=== PATIENT | male | born 1975 | race Two or more races ===

== ENCOUNTER 2023-09-27 19:06 | Inpatient (IN) | payer MEDICAID, OTHER ==
[~2023-09-27] VITALS: Ht 177.8 cm; Wt 141.6 kg
[2023-09-27 19:44] LABS: Basophils # (auto) 0.1 10 ^3/uL (0-0.2); Basophils % (auto) 0.7 % (0.0-2.0); Eosinophils # (auto) 0.2 10 ^3/uL (0-0.8); Eosinophils % (auto) 1.5 % (0.0-7.0); Hematocrit 46.2 % (41.0-53.0); Hemoglobin 15.1 g/dL (13.5-17.5); Lymphocytes % (auto) 19.2 % (10.0-50.0); Mean Corpuscular Hemoglobin 28.4 pg (28.0-32.0); Mean Corpuscular Hgb Conc. 32.7 g/dL (32.0-36.0); Mean Corpuscular Volume 86.6 fL (80.0-100.0); Monocytes # (auto) 0.9 10 ^3/uL (0-1.3); Monocytes % (auto) 8.1 % (0.0-12.0); Neutrophils # (auto) 7.6 10 ^3/uL (1.6-8.6); Neutrophils % (auto) 70.5 % (37.0-80.0); Platelet Count (auto) 349 10^3/uL (140-450); Red Blood Cells 5.33 10^6/uL (4.5-5.90); Red Cell Distribution Width 14.2 % (11.8-14.3); White Blood Cell 10.7 10^3/uL (4.4-10.8)
[2023-09-27 19:56] LABS: Chloride 94 mmol/L (98-107); Potassium 4.7 mmol/L (3.5-5.1); Sodium 124 mmol/L (136-145)
[2023-09-27 19:57] LABS: Anion Gap 5 (5-15); Calcium 9.3 mg/dL (8.7-10.4); Carbon Dioxide 25 mmol/L (20-30)
[2023-09-27 20:02] LABS: Blood Urea Nitrogen 15 mg/dL (9-23)
[2023-09-27 20:14] LABS: Glucose 877 mg/dL (74-106)
[2023-09-27] MEDS ORDERED: DEXTROSE (50%) 50ML SYRG IV PRN (21:45)
[2023-09-27] MEDS ORDERED: ONDANSETRON HCL 4 MG/2 ML VIAL IV PRN (21:45)
[2023-09-27] MEDS: InsuLIN REG 1unit/0.01ml Soln (100units/ml) IV ONE (22:10)
[2023-09-27] MEDS: cloNIDine HCL 0.1 MG TAB PO ONE (22:10)
[2023-09-27] MEDS: SODIUM CHLORIDE 0.9% 1,000 ML IV ONE (22:13)
[2023-09-27 23:03] VITALS: PULSE 97; RESP 20; O2SAT 92
[2023-09-27] MEDS: cloNIDine HCL 0.1 MG TAB PO PRN (23:27)
[2023-09-28] MEDS: InsuLIN REG 1unit/0.01ml Soln (100units/ml) SC SCH (01:02)
[2023-09-28] MEDS: LISINOPRIL 5 MG TAB PO SCH (01:04)
[2023-09-28] MEDS: ACCU-CHEK COMFORT CURVE STRIP VI SCH (01:10)
[2023-09-28] MEDS: SODIUM CHLORIDE 0.9% 1,000 ML IV ONE ×2 (02:32→07:37)
[2023-09-28 03:49] LABS: Basophils # (auto) 0.1 10 ^3/uL (0-0.2); Basophils % (auto) 0.5 % (0.0-2.0); Eosinophils # (auto) 0.2 10 ^3/uL (0-0.8); Eosinophils % (auto) 1.9 % (0.0-7.0); Hematocrit 44.2 % (41.0-53.0); Hemoglobin 15.1 g/dL (13.5-17.5); Lymphocytes # (auto) 2.9 10 ^3/uL (0.4-5.4); Lymphocytes % (auto) 24.4 % (10.0-50.0); Mean Corpuscular Hemoglobin 28.7 pg (28.0-32.0); Mean Corpuscular Hgb Conc. 34.1 g/dL (32.0-36.0); Mean Corpuscular Volume 84.2 fL (80.0-100.0); Monocytes # (auto) 0.8 10 ^3/uL (0-1.3); Neutrophils # (auto) 7.9 10 ^3/uL (1.6-8.6); Neutrophils % (auto) 66.2 % (37.0-80.0); Platelet Count (auto) 345 10^3/uL (140-450); Red Blood Cells 5.24 10^6/uL (4.5-5.90); Red Cell Distribution Width 14.1 % (11.8-14.3)
[2023-09-28 04:07] LABS: Alanine Aminotransferase 24 U/L (7-40); Albumin 3.8 g/dL (3.2-4.8); Alkaline Phosphatase 177 U/L (46-116); Anion Gap 2 (5-15); Aspartate Aminotransferase 11 U/L (13-40); BUN/Creatinine Ratio 10.8 (10.0-20.0); Bilirubin, Total 0.5 mg/dL (0.2-1.0); Blood Urea Nitrogen 12 mg/dL (9-23); Calcium 9.2 mg/dL (8.7-10.4); Carbon Dioxide 28 mmol/L (20-30); Chloride 102 mmol/L (98-107); Potassium 3.6 mmol/L (3.5-5.1); Total Protein 6.7 g/dL (5.7-8.2)
[2023-09-28 04:17] LABS: Sodium 132 mmol/L (136-145)
[2023-09-28 04:18] LABS: Glucose 401 mg/dL (74-106)
[2023-09-28 08:08] VITALS: PULSE 89; RESP 18; O2SAT 96
[2023-09-28 09:23] LABS: Base Excess 0.6 mmol/L (-2.0-2.0)
[2023-09-28] MEDS ORDERED: LISINOPRIL 5 MG TAB PO SCH (10:00)
[2023-09-28] MEDS: INSULIN LANTUS (GLARGINE) 1 /0.01ml (100units/ml) SC SCH ×2 (10:50→11:00)
[2023-09-28 15:20] LABS: Magnesium 2.2 mg/dL (1.6-2.6)
[2023-09-28 15:45] VITALS: BP 143/83; PULSE 85; TEMP 97.6; O2SAT 96
[2023-09-28 17:07] VITALS: BP 143/83; PULSE 85; RESP 17; TEMP 97.6; O2SAT 96
[2023-09-28 18:46] LABS: Urine Bacteria None Seen /hpf (None Seen)
[2023-09-28 19:05] LABS: Urine Blood TRACE /uL (Negative); Urine Clarity Clear (Clear); Urine Color Light-Yellow (Yellow); Urine Protein, UAD Negative (Negative); Urine Specific Gravity 1.024 (1.001-1.035); Urine Urobilinogen Normal (Negative); Urine WBC <1 /hpf (0 - 3)
[2023-09-28 19:14] LABS: Amphetamine Screen, Urine Neg (NEGATIVE); Barbiturate Scree,Urine Neg (NEGATIVE); Benzodiazephine Screen, Urine Neg (NEGATIVE); Cannabinoid Screen, Urine Neg (NEGATIVE); Cocaine Screen, Urine Neg (NEGATIVE); Opiate Scree,Urine Neg (NEGATIVE); Phencyclidine Screen, Urine Neg (NEGATIVE)
[2023-09-28 20:00] VITALS: PULSE 101; RESP 18; O2SAT 95
[2023-09-28 21:00] VITALS: BP 113/82; PULSE 106; RESP 16; TEMP 98.4; O2SAT 94
[2023-09-28] MEDS: ACETAMINOPHEN 325 MG TAB PO PRN (23:06)
[2023-09-29] VITALS (8 sets, daily range): BP systolic 143–163; BP diastolic 85–104; PULSE 78–101; RESP 20–22; TEMP 97.9–98.4; O2SAT 93–100
[2023-09-29 07:07] LABS: Basophils # (auto) 0.1 10 ^3/uL (0-0.2); Basophils % (auto) 0.6 % (0.0-2.0); Eosinophils # (auto) 0.3 10 ^3/uL (0-0.8); Eosinophils % (auto) 2.5 % (0.0-7.0); Hematocrit 43.9 % (41.0-53.0); Hemoglobin 15.3 g/dL (13.5-17.5); Lymphocytes # (auto) 2.6 10 ^3/uL (0.4-5.4); Lymphocytes % (auto) 21.1 % (10.0-50.0); Mean Corpuscular Hemoglobin 29.3 pg (28.0-32.0); Mean Corpuscular Hgb Conc. 34.7 g/dL (32.0-36.0); Mean Corpuscular Volume 84.2 fL (80.0-100.0); Monocytes % (auto) 7.9 % (0.0-12.0); Neutrophils # (auto) 8.5 10 ^3/uL (1.6-8.6); Neutrophils % (auto) 67.9 % (37.0-80.0); Platelet Count (auto) 331 10^3/uL (140-450); Red Blood Cells 5.22 10^6/uL (4.5-5.90); Red Cell Distribution Width 14.2 % (11.8-14.3); White Blood Cell 12.5 10^3/uL (4.4-10.8)
[2023-09-29 07:26] LABS: Alanine Aminotransferase 26 U/L (7-40); Albumin 3.7 g/dL (3.2-4.8); Alkaline Phosphatase 133 U/L (46-116); Anion Gap 7 (5-15); Aspartate Aminotransferase 17 U/L (13-40); BUN/Creatinine Ratio 10.8 (10.0-20.0); Blood Urea Nitrogen 10 mg/dL (9-23); Carbon Dioxide 25 mmol/L (20-30); Chloride 103 mmol/L (98-107); Potassium 3.2 mmol/L (3.5-5.1); Sodium 135 mmol/L (136-145)
[2023-09-29 07:27] LABS: Bilirubin, Total 0.6 mg/dL (0.2-1.0); Total Protein 6.8 g/dL (5.7-8.2)
[2023-09-29 07:37] LABS: Glucose 265 mg/dL (74-106)
[2023-09-29] MEDS: amLODIPine BESYLATE 5 MG TAB PO SCH (09:22)
[2023-09-29] MEDS: POTASSIUM CHL 20 Meq TABLET PO ONE (09:22)
[2023-09-29] MEDS ORDERED: LISI2.5T47 PO (09:28)
[2023-09-29] MEDS ORDERED: BENA10TA90 PO (09:28)
[2023-09-29] MEDS: INSULIN LANTUS (GLARGINE) 1 /0.01ml (100units/ml) SC SCH (13:15)
[2023-09-29] MEDS: hydrALAZINE HCL 20 MG/ML VL IV PRN (17:34)
[2023-09-29] MEDS: INSULIN LANTUS (GLARGINE) 1 /0.01ml (100units/ml) SC ONE (18:12)
[2023-09-29] MEDS: LISINOPRIL 20 MG TAB PO SCH (21:33)
[2023-09-29] MEDS: CEPHALEXIN 250 MG CAP PO SCH (21:33)
[2023-09-30] VITALS (7 sets, daily range): BP systolic 114–134; BP diastolic 71–87; PULSE 91–105; RESP 17–22; TEMP 98–98.3; O2SAT 91–99
[2023-09-30 06:10] LABS: Basophils # (auto) 0.1 10 ^3/uL (0-0.2); Basophils % (auto) 0.6 % (0.0-2.0); Eosinophils # (auto) 0.3 10 ^3/uL (0-0.8); Eosinophils % (auto) 2.5 % (0.0-7.0); Hematocrit 47.2 % (41.0-53.0); Hemoglobin 16.1 g/dL (13.5-17.5); Lymphocytes # (auto) 2.6 10 ^3/uL (0.4-5.4); Lymphocytes % (auto) 25.7 % (10.0-50.0); Mean Corpuscular Hemoglobin 28.8 pg (28.0-32.0); Mean Corpuscular Hgb Conc. 34.1 g/dL (32.0-36.0); Mean Corpuscular Volume 84.5 fL (80.0-100.0); Monocytes # (auto) 0.9 10 ^3/uL (0-1.3); Monocytes % (auto) 8.5 % (0.0-12.0); Neutrophils # (auto) 6.4 10 ^3/uL (1.6-8.6); Neutrophils % (auto) 62.7 % (37.0-80.0); Platelet Count (auto) 364 10^3/uL (140-450); Red Blood Cells 5.59 10^6/uL (4.5-5.90); Red Cell Distribution Width 14.7 % (11.8-14.3); White Blood Cell 10.2 10^3/uL (4.4-10.8)
[2023-09-30 06:39] LABS: Alanine Aminotransferase 29 U/L (7-40); Albumin 3.9 g/dL (3.2-4.8); Alkaline Phosphatase 126 U/L (46-116); Anion Gap 8 (5-15); Aspartate Aminotransferase 20 U/L (13-40); BUN/Creatinine Ratio 9.8 (10.0-20.0); Blood Urea Nitrogen 9 mg/dL (9-23); Calcium 9.3 mg/dL (8.7-10.4); Carbon Dioxide 25 mmol/L (20-30); Chloride 105 mmol/L (98-107); Glucose 232 mg/dL (74-106); Potassium 3.4 mmol/L (3.5-5.1); Sodium 138 mmol/L (136-145)
[2023-09-30 06:40] LABS: Bilirubin, Total 0.5 mg/dL (0.2-1.0); Total Protein 7.1 g/dL (5.7-8.2)
[2023-09-30] MEDS: ENOXAPARIN SOD 40 MG/0.4 ML SYRINGE SC SCH (10:10)
[2023-09-30] MEDS: SULFAMETHOX W/TRIMETH(800/160MG) DS TAB PO SCH (10:10)
[2023-09-30] MEDS: hydrALAZINE HCL 10 MG TAB PO SCH (12:27)
[2023-09-30 13:53] LABS: Base Excess -1.2 mmol/L (-2.0-2.0)
[2023-09-30] MEDS ORDERED: HYDR-2792 PO (15:42)
[2023-09-30] MEDS ORDERED: LISI20TA56 PO (15:42)
[2023-09-30] MEDS ORDERED: METF-370 PO (15:42)
[2023-09-30] MEDS ORDERED: AML5T PO (15:42)
[2023-09-30] MEDS ORDERED: BACDST PO (15:42)
[2023-09-30] MEDS ORDERED: INSU1INJ26 SC (16:31)
== END 2023-09-30 20:25 | disposition home or self-care (01) | DRG 420 ==
LOC: ER 19:06 → OVERFLOW 21:46 → EAST 09-28 16:27
PROVIDERS: ADMIT Internal Medicine Pulmonary Disease; ATTEND Internal Medicine Pulmonary Disease
DX: E11.00 Type 2 diabetes mellitus with hyperosmolarity without nonketotic hyperglycemic-hyperosmolar coma (NKHHC) (principal); N17.0 Acute kidney failure with tubular necrosis; I16.0 Hypertensive urgency; L30.9 Dermatitis, unspecified; E87.1 Hypo-osmolality and hyponatremia; E87.6 Hypokalemia; L73.8 Other specified follicular disorders; F17.210 Nicotine dependence, cigarettes, uncomplicated; Z91.199 Patient's noncompliance with other medical treatment and regimen due to unspecified reason; Z83.3 Family history of diabetes mellitus; I10 Essential (primary) hypertension
CPT/HCPCS: 36415; 36600; 80048; 80053; 80061; 80307; 81001; 82010; 82043; 82805; 82962; 83036; 83605; 83735; 83880; 84132; 84484; 85025; 87040; 87077; 87081; 87186; 87205; 96361; 96372; 96374; 97110; 97116; 97162; 97530; 99291; G0378; J1815

== ENCOUNTER 2023-12-02 17:45 | Inpatient (IN) | payer MEDICAID ==
[~2023-12-02] VITALS: Ht 175.3 cm; Wt 121.2 kg
[~2023-12-02 17:45] MED LIST: AML5T PO; BACDST PO; HYDR-2792 PO; INSU1INJ26 SC; LISI20TA56 PO; METF-370 PO
[2023-12-02 18:25] LABS: Basophils # (auto) 0.1 10 ^3/uL (0-0.2); Basophils % (auto) 0.9 % (0.0-2.0); Eosinophils # (auto) 0.2 10 ^3/uL (0-0.8); Eosinophils % (auto) 2.2 % (0.0-7.0); Hematocrit 46.5 % (41.0-53.0); Hemoglobin 15.9 g/dL (13.5-17.5); Lymphocytes # (auto) 2.1 10 ^3/uL (0.4-5.4); Lymphocytes % (auto) 21.3 % (10.0-50.0); Mean Corpuscular Hemoglobin 29.5 pg (28.0-32.0); Mean Corpuscular Hgb Conc. 34.2 g/dL (32.0-36.0); Mean Corpuscular Volume 86.3 fL (80.0-100.0); Monocytes # (auto) 0.7 10 ^3/uL (0-1.3); Monocytes % (auto) 7.6 % (0.0-12.0); Neutrophils # (auto) 6.6 10 ^3/uL (1.6-8.6); Nucleated Red Blood Cells % 0.1 %; Platelet Count (auto) 406 10^3/uL (140-450); Red Blood Cells 5.38 10^6/uL (4.5-5.90); Red Cell Distribution Width 14.1 % (11.8-14.3); White Blood Cell 9.8 10^3/uL (4.4-10.8)
[2023-12-02 18:35] LABS: Chloride 95 mmol/L (98-107)
[2023-12-02 18:36] LABS: Anion Gap 9 (5-15); Carbon Dioxide 24 mmol/L (20-31); Potassium 4.5 mmol/L (3.5-5.1); Sodium 128 mmol/L (136-145)
[2023-12-02 18:42] LABS: BUN/Creatinine Ratio 12.2 (10.0-20.0); Blood Urea Nitrogen 16 mg/dL (9-23)
[2023-12-02 18:58] LABS: Urine Bacteria None Seen /hpf (None Seen)
[2023-12-02 19:02] LABS: Glucose 799 mg/dL (74-106)
[2023-12-02] MEDS: InsuLIN REG 1unit/0.01ml Soln (100units/ml) IV ONE (19:25)
[2023-12-02] MEDS: SODIUM CHLORIDE 0.9% 1,000 ML IV ONE (19:25)
[2023-12-02 19:30] LABS: Urine Blood Negative /uL (Negative); Urine Clarity Clear (Clear); Urine Color Colorless (Yellow); Urine Protein, UAD Negative (Negative); Urine Specific Gravity 1.031 (1.001-1.035); Urine Urobilinogen Normal (Negative); Urine WBC <1 /hpf (0 - 3); Urine pH 5.5 (5.0-9.0)
[2023-12-02] MEDS ORDERED: INSULIN DRIP 100 UNIT/100ML 100 ML IV SCH (19:30)
[2023-12-02] MEDS: ACCU-CHEK COMFORT CURVE STRIP VI SCH ×2 (19:30→22:00)
[2023-12-02] MEDS ORDERED: DEXTROSE (50%) 50ML SYRG IV PRN ×2 (19:30→21:30)
[2023-12-02] MEDS ORDERED: NITROGLYCERIN 0.4 MG SL TAB SL PRN (21:00)
[2023-12-02] MEDS ORDERED: ONDANSETRON HCL 4 MG/2 ML VIAL IV PRN (21:00)
[2023-12-02] MEDS ORDERED: MORPHINE SULFATE INJ 2 MG/ml SYRG IV PRN (21:00)
[2023-12-02 21:52] LABS: Amphetamine Screen, Urine Pos (NEGATIVE); Barbiturate Scree,Urine Neg (NEGATIVE); Benzodiazephine Screen, Urine Neg (NEGATIVE); Cannabinoid Screen, Urine Neg (NEGATIVE); Cocaine Screen, Urine Neg (NEGATIVE); Opiate Scree,Urine Neg (NEGATIVE); Phencyclidine Screen, Urine Neg (NEGATIVE)
[2023-12-02] MEDS: SODIUM CHLOR 0.9% PF (SALINE LOCK) 10ML VIAL/SYR IV SCH (22:00)
[2023-12-02] MEDS: InsuLIN REG 1unit/0.01ml Soln (100units/ml) SC SCH (23:10)
[2023-12-03] VITALS (9 sets, daily range): BP systolic 145–167; BP diastolic 84–112; PULSE 81–109; RESP 16–20; TEMP 97.7–98.9; O2SAT 95–98
[2023-12-03] MEDS: SODIUM CHLORIDE 0.9% 1,000 ML IV ONE (01:04)
[2023-12-03] MEDS: LOSARTAN POTASSIUM 25 MG TAB PO ONE (01:19)
[2023-12-03] MEDS: HYDROcodone-ACET 5/325MG TAB PO PRN (01:19)
[2023-12-03] MEDS: hydrALAZINE HCL 20 MG/ML VL IV PRN (03:50)
[2023-12-03] MEDS: InsuLIN REG 1unit/0.01ml Soln (100units/ml) SC SCH (06:59)
[2023-12-03] MEDS: INSULIN LANTUS (GLARGINE) 1 /0.01ml (100units/ml) SC SCH (07:00)
[2023-12-03 07:17] LABS: Basophils # (auto) 0.1 10 ^3/uL (0-0.2); Basophils % (auto) 0.8 % (0.0-2.0); Eosinophils # (auto) 0.3 10 ^3/uL (0-0.8); Eosinophils % (auto) 2.6 % (0.0-7.0); Hematocrit 45.2 % (41.0-53.0); Hemoglobin 15.7 g/dL (13.5-17.5); Lymphocytes # (auto) 2.9 10 ^3/uL (0.4-5.4); Lymphocytes % (auto) 26.7 % (10.0-50.0); Mean Corpuscular Hemoglobin 29.3 pg (28.0-32.0); Mean Corpuscular Hgb Conc. 34.7 g/dL (32.0-36.0); Mean Corpuscular Volume 84.5 fL (80.0-100.0); Monocytes # (auto) 0.8 10 ^3/uL (0-1.3); Monocytes % (auto) 7.9 % (0.0-12.0); Neutrophils # (auto) 6.6 10 ^3/uL (1.6-8.6); Nucleated Red Blood Cells % 0.2 %; Platelet Count (auto) 386 10^3/uL (140-450); Red Blood Cells 5.34 10^6/uL (4.5-5.90); White Blood Cell 10.7 10^3/uL (4.4-10.8)
[2023-12-03 07:37] LABS: Alanine Aminotransferase 18 U/L (7-40); Albumin 4.1 g/dL (3.2-4.8); Alkaline Phosphatase 167 U/L (46-116); Anion Gap 10 (5-15); Aspartate Aminotransferase 8 U/L (13-40); BUN/Creatinine Ratio 12.5 (10.0-20.0); Bilirubin, Total 0.5 mg/dL (0.2-1.0); Blood Urea Nitrogen 11 mg/dL (9-23); Calcium 9.6 mg/dL (8.7-10.4); Carbon Dioxide 23 mmol/L (20-31); Chloride 103 mmol/L (98-107); Potassium 3.4 mmol/L (3.5-5.1); Sodium 136 mmol/L (136-145); Total Protein 6.9 g/dL (5.7-8.2)
[2023-12-03 07:41] LABS: Glucose 330 mg/dL (74-106)
[2023-12-03] MEDS: ENOXAPARIN SOD 40 MG/0.4 ML SYRINGE SC SCH (09:00)
[2023-12-03] MEDS: LOSARTAN POTASSIUM 25 MG TAB PO SCH (09:00)
[2023-12-03] MEDS: POTASSIUM EFFERVESENT TAB 25 MEQ PO ONE (10:07)
[2023-12-03] MEDS: amLODIPine BESYLATE 5 MG TAB PO ONE (11:42)
[2023-12-03] MEDS: ACETAMINOPHEN 325 MG TAB PO PRN (17:55)
[2023-12-04] VITALS (8 sets, daily range): BP systolic 126–153; BP diastolic 87–101; PULSE 85–109; RESP 16–19; TEMP 97.6–98.3; O2SAT 94–98
[2023-12-04 06:09] LABS: Calcium 9.6 mg/dL (8.7-10.4); Chloride 106 mmol/L (98-107); Potassium 3.4 mmol/L (3.5-5.1); Sodium 136 mmol/L (136-145)
[2023-12-04 06:11] LABS: Anion Gap 6 (5-15); Carbon Dioxide 24 mmol/L (20-31)
[2023-12-04 06:16] LABS: BUN/Creatinine Ratio 9.9 (10.0-20.0); Blood Urea Nitrogen 10 mg/dL (9-23); Glucose 264 mg/dL (74-106)
[2023-12-04] MEDS: amLODIPine BESYLATE 5 MG TAB PO SCH (09:56)
[2023-12-04] MEDS ORDERED: INSU100I70 SC (12:00)
[2023-12-04] MEDS ORDERED: INSU100I49 SC (12:00)
[2023-12-04] MEDS ORDERED: BLOO1KIT60 XX (12:02)
[2023-12-04] MEDS ORDERED: LANC-347 XX (12:03)
[2023-12-04] MEDS: amLODIPine BESYLATE 5 MG TAB PO ONE (13:48)
== END 2023-12-04 19:54 | disposition home or self-care (01) | DRG 420 ==
LOC: ER 17:45 → OVERFLOW 20:57 → EAST 21:03 → OVERFLOW 21:03 → EAST 12-03 02:32
PROVIDERS: ADMIT Internal Medicine; ATTEND Internal Medicine
DX: E11.65 Type 2 diabetes mellitus with hyperglycemia (principal); N17.0 Acute kidney failure with tubular necrosis; I11.9 Hypertensive heart disease without heart failure; E87.6 Hypokalemia; E87.1 Hypo-osmolality and hyponatremia; F15.10 Other stimulant abuse, uncomplicated; Z59.00 Homelessness unspecified; Z91.199 Patient's noncompliance with other medical treatment and regimen due to unspecified reason; Z79.899 Other long term (current) drug therapy; Z79.4 Long term (current) use of insulin
CPT/HCPCS: 36415; 71045; 80048; 80053; 80307; 81001; 82010; 82962; 83036; 83690; 84443; 84484; 85025; 93306; 99291; G0378; J1815

== ENCOUNTER 2024-07-10 21:31 | Inpatient (IN) | payer MEDICAID ==
[~2024-07-10] VITALS: Ht 175.3 cm; Wt 101.6 kg
[~2024-07-10 21:31] MED LIST changes: +BLOO1KIT60 XX; +INSU100I70 SC; +LANC-347 XX
[2024-07-10 22:08] VITALS: PULSE 102; RESP 17; O2SAT 95
[2024-07-10 22:11] LABS: Urine Bacteria None Seen /hpf (None Seen)
[2024-07-10] MEDS ORDERED: hydrALAZINE HCL 20 MG/ML VL IV ONE (22:15)
[2024-07-10 22:20] LABS: Urine Blood Negative /uL (Negative); Urine Clarity Clear (Clear); Urine Color Colorless (Yellow); Urine Protein, UAD Negative (Negative); Urine Specific Gravity 1.027 (1.001-1.035); Urine Squamous Epithelial Cell FEW /hpf (<5); Urine Urobilinogen Normal (Negative); Urine WBC < 1 /HPF (0-3)
[2024-07-10 22:25] LABS: Base Excess -2.1 mmol/L (-2.0-3.0)
[2024-07-10 22:36] LABS: Basophils # (auto) 0.1 10 ^3/uL (0-0.2); Basophils % (auto) 0.8 % (0.0-2.0); Eosinophils # (auto) 0.2 10 ^3/uL (0-0.8); Eosinophils % (auto) 2.8 % (0.0-7.0); Hematocrit 47.1 % (41.0-53.0); Hemoglobin 15.4 g/dL (13.5-17.5); Lymphocytes # (auto) 2.7 10 ^3/uL (0.4-5.4); Lymphocytes % (auto) 30.2 % (10.0-50.0); Mean Corpuscular Hemoglobin 28.9 pg (28.0-32.0); Mean Corpuscular Hgb Conc. 32.7 g/dL (32.0-36.0); Mean Corpuscular Volume 88.5 fL (80.0-100.0); Monocytes # (auto) 0.7 10 ^3/uL (0-1.3); Monocytes % (auto) 8.1 % (0.0-12.0); Neutrophils # (auto) 5.1 10 ^3/uL (1.6-8.6); Neutrophils % (auto) 58.1 % (37.0-80.0); Nucleated Red Blood Cells % 0.2 %; Platelet Count (auto) 321 10^3/uL (140-450); Red Blood Cells 5.32 10^6/uL (4.5-5.90); Red Cell Distribution Width 12.8 % (11.8-14.3); White Blood Cell 8.8 10^3/uL (4.4-10.8)
[2024-07-10] MEDS: SODIUM CHLORIDE 0.9% 2,000 ML IV ONE (22:40)
[2024-07-10] MEDS: ONDANSETRON HCL 4 MG/2 ML VIAL IV ONE (22:41)
[2024-07-10] MEDS: InsuLIN REG 1unit/0.01ml Soln (100units/ml) IV ONE (22:45)
--- NOTE | 2024-07-10 22:50 | DVH ---
CHEST RADIOGRAPH Indication: hi bp Technique: Single frontal view of the chest was obtained COMPARISON: XY CHEST PORTABLE on DOS: 12/02/23 FINDINGS: Lines and Tubes: None Lungs: Clear Pleura: No effusion. No pneumothorax. Cardiomediastinal contours: Unremarkable IMPRESSION: No acute disease. No appreciable change compared to the prior chest x-ray from November 2023.
--- NOTE | 2024-07-10 22:52 | DVH ---
CT HEAD WITHOUT CONTRAST INDICATION: syncope COMPARISON: None TECHNIQUE: CT of the head without intravenous contrast. RADIATION DOSE: CTDIvol: mGy, DLP: mGy*cm FINDINGS: There is no evidence of intracranial hemorrhage, infarct, extra-axial collection, mass effect, midlin e shift, herniation or hydrocephalus. The ventricles, sulci and cisterns are normal. The birch-white d ifferentiation is intact. Visualized paranasal sinuses and mastoid air cells are clear. Soft tissues and osseous structures are unremarkable. IMPRESSION: No intracranial abnormality identified.
[2024-07-10 22:53] LABS: Alanine Aminotransferase 28 U/L (7-40); Anion Gap 9 (5-15); BUN/Creatinine Ratio 11.1 (10.0-20.0); Blood Urea Nitrogen 14 mg/dL (9-23); Calcium 9.6 mg/dL (8.7-10.4); Carbon Dioxide 24 mmol/L (20-31); Potassium 4.1 mmol/L (3.5-5.1); Total Protein 6.4 g/dL (5.7-8.2)
[2024-07-10 22:54] LABS: Bilirubin, Total 0.6 mg/dL (0.2-1.0)
[2024-07-10] MEDS: hydrALAZINE HCL 20 MG/ML VL IV ONE (22:54)
[2024-07-10 23:00] LABS: Chloride 93 mmol/L (98-107); Lactic Acid w/Reflex 4.6 mmol/L (0.4-2.0); Sodium 126 mmol/L (136-145)
[2024-07-10 23:01] LABS: Alkaline Phosphatase 283 U/L (46-116); Aspartate Aminotransferase 9 U/L (13-40); Glucose 876 mg/dL (74-106)
--- NOTE | 2024-07-11 00:04 | ED.PDOC ---
History of present illness HPI Comments 49-year-old male with history of hypertension and diabetes brought in by family for evaluation of dizziness for the past five days, blurred vision, urinary frequency and nausea. Patient states he has not taken his insulin since yesterday, since he has run out of his medication. He also notes he had a synco pal episode this morning. Denies any fever, chest pain, shortness of breath, abdominal pain, diarrhea, constipation or urinary symptoms. At triage, patient was found to be hypertensive and Accu-Chek was reading high. 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, Medications, Allergies Allergies: Coded Allergies: NO KNOWN ALLERGIES (Unverified , 09/27/23) Home Meds Active Scripts Lancets (Freestyle Lancets) Lancets Mis, EA XX, #120 check blood glucose 15 minutes before meals Prov:RO NORIEGA RESIDENT 12/04/23 Blood Glucose Monitoring Suppl (D-Care Glucometer Kit/Glu W/Device) 1 Kit Kit, KIT XX QID, #1 0 Refills please check blood glucose levels 15 minutes before meals and dose insulin aspart accordingly Prov:RO NORIEGA RESIDENT 12/04/23 Insulin Glargine-Yfgn (Insulin Glargine) 100 Unit/Ml Inj, 30 UNIT SC QAM for 30 Days, #10 INJ Prov:RO NORIEGA RESIDENT 12/04/23 Insulin Aspart Protamine & Asp (Insulin Aspart Protamine/ (70-30) 100 Unit/ml) 1 Inj Inj, 15 INJ SC BID PRN for 30 Days, #60 INJ Prov:SOFYA CROWDER MD 09/30/23 Metformin Hydrochloride (Metformin Hcl) 500 Mg Tab, 1 TAB PO BID for 30 Days, #60 TAB 3 Refills Prov:NYDIA SHORT RESIDENT 09/30/23 Sulfamethoxazole W/Trimethopri (Bactrim Ds Tablet) 1 Tab Tb, 2 TAB PO Q12HR for 5 Days, #20 TAB Prov:NYDIA SHORT RESIDENT 09/30/23 Lisinopril (Lisinopril) 20 Mg Tab, 40 MG PO DAILY for 30 Days, #60 TAB 2 Refills Prov:NYDIA SHORT RESIDENT 09/30/23 Hydralazine Hcl (Hydralazine Hcl) 10 Mg Tab, 10 MG PO Q6HR for 30 Days, #120 TAB 2 Refills Prov:NYDIA SHORT RESIDENT 09/30/23 Amlodipine Besylate (NORVASC TABLET) 5 Mg Tb, 10 MG PO DAILY for 30 Days, #60 TAB 2 Refills Prov:NYDIA SHORT RESIDENT 09/30/23 Information Source: Patient, Emergency Med Personnel Mode of Arrival: EMS Timing: Hours Duration: Since onset Prehospital treatment: 12 Lead EKG, Accucheck, Thread Winder Automatic Past Medical History PAST MEDICAL HISTORY: DM, HTN Surgical History: Denies all surgeries Family History Family History: Reviewed,noncontributory to illness Social History Smoker: Non-Smoker Alcohol: Denies ETOH Use Drugs: Denies Drug Use Lives In: Home All Other Systems: Reviewed and Negative (Comprehensive systems review obtained and negative except for what is stated in the HPI.) Physical Exam General Appearance: No Apparent Distress, Obese HEENT: Other (Pupils and face symmetric. Moist mucous membranes.) Neck: Full Range of Motion, Normal Inspection Respiratory: Lungs Clear, No Accessory Muscle Use, No Respiratory Distress, Normal Breath Sounds Cardiovascular: No Edema, No JVD, Regular Rate/Rhythm Breast Exam: Deferred Gastrointestinal: Non Tender, Soft Genitalia: Deferred Pelvic: Deferred Rectal: Deferred Extremities: Normal inspection, Normal range of motion, Non-tender, No pedal edema Neurologic: Alert (Oriented x4), Normal Affect, Normal Mood, Other (Ambulatory.) Cerebellar Function: NOT DONE Reflexes: NOT DONE Skin: Dry, Normal Color, Warm Lymphatic: NOT DONE Was a procedure done? Was a procedure done?: No Differential Diagnosis (DM) Differential Diagnosis: Dehydration, DKA, Electrolyte Abnormality, Hyperglycemia, Hyperosmolar State, UTI, Other (CVA, TIA, arrhythmia, [place], among others) X-Ray, Labs, Meds, VS Vital Signs Date Time Temp Pulse Resp B/P (MAP) Pulse Ox O2 Delivery O2 Flow Rate FiO2 07/11/24 00:59 118 18 167/106 07/11/24 00:22 180/107 07/11/24 00:00 104 13 180/107 (131) 92 07/10/24 22:54 167/102 07/10/24 22:08 102 17 95 Room Air* 0 21 07/10/24 22:08 98.4 102 17 178/112 (134) 95 98.4 07/10/24 21:45 97.4 97 18 197/119 (145) 97 97.4 Lab Test 07/11/24 00:14 07/10/24 23:54 07/10/24 22:21 07/10/24 22:20 Range/Units Sodium Level 131 #L 126 L 136-145 mmol/L Potassium Level 4.2 4.1 3.5-5.1 mmol/L Chloride Level 97 L 93 L 98-107 mmol/L Carbon Dioxide Level 26 24 20-31 mmol/L Anion Gap 8 9 5-15 Blood Urea Nitrogen 12 14 9-23 mg/dL Creatinine 1.00 1.26 0.700-1.30 mg/dL Glomerular Filtration Rate Calc 92 70 >90 mL/min BUN/Creatinine Ratio 12.0 11.1 10.0-20.0 Serum Glucose 555 #*H 876 *H 74-106 mg/dL Lactic Acid Level 3.4 *H 4.6 *H 0.4-2.0 mmol/L Calcium Level 8.7 9.6 8.7-10.4 mg/dL Phosphorus Level 3.9 2.4-5.1 mg/dL Magnesium Level 1.8 1.6-2.6 mg/dL Troponin I High Sensitivity 8 7 </=54 ng/L Triglycerides Level 390 H < 150 mg/dL Cholesterol Level 162 < 200 mg/dL LDL Cholesterol 100 H < 100 mg/dL HDL Cholesterol 43 40-59 mg/dL POC Glucose 532 *H 70-106 mg/dl Blood Gas Specimen Type Arterial Blood Gas Sample Site Right radial Blood Gas Patient Temperature 37.0 Arterial Blood Date Drawn [id number] Arterial Blood pH 7.401 7.350-7.450 Arterial Blood Partial Pressure CO2 36.4 35.0-48.0 mmHg Arterial Blood Partial Pressure O2 72.2 L 83.0-108.0 mmHg Arterial Blood HCO3 22.1 21.0-28.0 mmol/L Arterial Blood Oxygen Saturation 94.6 94.0-98.0 % Arterial Blood Base Excess -2.1 L -2.0-3.0 mmol/L Arterial Blood Oxyhemoglobin 92.9 L 94.0-98.0 % Arterial Blood Carboxyhemoglobin 1.3 0.5-1.5 % Arterial Blood Methemoglobin 0.5 0.0-1.5 % Brendan Test Yes Blood Gas Total Hemoglobin 15.70 13.5-17.5 g/dL Blood Gas Modality Room air FiO2 % 21.0 White Blood Count 8.8 4.4-10.8 10^3/uL Red Blood Count 5.32 4.5-5.90 10^6/uL Hemoglobin 15.4 13.5-17.5 g/dL Hematocrit 47.1 41.0-53.0 % Mean Corpuscular Volume 88.5 80.0-100.0 fL Mean Corpuscular Hemoglobin 28.9 28.0-32.0 pg Mean Corpuscular Hemoglobin Concent 32.7 32.0-36.0 g/dL Red Cell Distribution Width 12.8 11.8-14.3 % Platelet Count 321 140-450 10^3/uL Mean Platelet Volume 7.8 6.9-10.8 fL Neutrophils (%) (Auto) 58.1 37.0-80.0 % Lymphocytes (%) (Auto) 30.2 10.0-50.0 % Monocytes (%) (Auto) 8.1 0.0-12.0 % Eosinophils (%) (Auto) 2.8 0.0-7.0 % Basophils (%) (Auto) 0.8 0.0-2.0 % Neutrophils # (Auto) 5.1 1.6-8.6 10 ^3/uL Lymphocytes # (Auto) 2.7 0.4-5.4 10 ^3/uL Monocytes # (Auto) 0.7 0-1.3 10 ^3/uL Eosinophils # (Auto) 0.2 0-0.8 10 ^3/uL Basophils # (Auto) 0.1 0-0.2 10 ^3/uL Nucleated Red Blood Cells 0.2 % Hemoglobin A1c > 14.0 H <5.7 % A1C Serum Osmolality 316 H 278-298 mOsm/kg Total Bilirubin 0.6 0.2-1.0 mg/dL Aspartate Amino Transferase (AST) 9 L 13-40 U/L Alanine Aminotransferase (ALT) 28 7-40 U/L Alkaline Phosphatase 283 H 46-116 U/L B-Type Natriuretic Peptide 13.77 0-100 pg/mL Total Protein 6.4 5.7-8.2 g/dL Albumin 4.0 3.2-4.8 g/dL Beta-Hydroxybutyric Acid 0.152 < 0.4 mmol/L Test 07/10/24 22:18 07/10/24 21:51 07/10/24 21:44 Range/Units POC Glucose > 600 *H > 600 *H 70-106 mg/dl Urine Color Colorless Yellow Urine Clarity Clear Clear Urine pH 6.0 5.0-9.0 Urine Specific [place] 1.027 1.001-1.035 Urine Protein Negative Negative Urine Ketones Negative Negative Urine Blood Negative Negative /uL Urine Nitrite Negative Negative Urine Bilirubin Negative Negative Urine Urobilinogen Normal Negative mg/dL Urine Leukocyte Esterase Negative Negative /uL Urine RBC 1 0 - 3 /hpf Urine Microscopic WBC < 1 0-3 /HPF Urine Squamous Epithelial Cells Few <5 /hpf Urine Bacteria None seen None Seen /hpf Urine Glucose 4+ H Normal mg/dL Current Medications Medications (Trade) Dose Ordered Sig/Jolene Route Start Time Stop Time Status Last Admin Sodium Chloride 2,000 ml @ 1,000 mls/hr Q2H ONCE IV 07/10/24 22:15 07/11/24 00:14 DC 07/10/24 22:40 Insulin Human Regular (InsuLIN R) 10 units ONCE ONCE IV 07/10/24 22:15 07/10/24 22:16 DC 07/10/24 22:45 Ondansetron HCl (Zofran) 4 mg ONCE ONCE IV 07/10/24 22:15 07/10/24 22:16 DC 07/10/24 22:41 Hydralazine HCl (Apresoline Injection) 10 mg ONCE ONCE IV 07/10/24 23:00 07/10/24 23:01 DC 07/10/24 22:54 Hydralazine HCl (Apresoline Injection) 10 mg ONCE ONCE IV 07/11/24 00:00 07/11/24 00:06 DC 07/11/24 00:22 Insulin Human Regular (InsuLIN R) 8 units ONCE ONCE IV 07/11/24 00:15 07/11/24 00:16 DC 07/11/24 00:18 Lorazepam (Ativan Inj) 1 mg ONCE ONCE IV 07/11/24 00:15 07/11/24 00:16 DC 07/11/24 00:13 Methocarbamol (Robaxin) 1,000 mg ONCE ONCE PO 07/11/24 00:15 07/11/24 00:16 DC 07/11/24 00:22 Morphine Sulfate 4 mg ONCE ONCE IV 07/11/24 01:00 07/11/24 01:01 DC 07/11/24 00:59 PROCEDURE(s): HWOCT - HEAD WITHOUT CONTRAST REASON: syncope ORDER NUMBER(s): [id number], ACCESSION NUMBER(s): [id number] CT HEAD WITHOUT CONTRAST INDICATION: syncope COMPARISON: None TECHNIQUE: CT of the head without intravenous contrast. RADIATION DOSE: CTDIvol: mGy, DLP: mGy*cm FINDINGS: There is no evidence of intracranial hemorrhage, infarct, extra-axial co llection, mass effect, midline shift, herniation or hydrocephalus. The ventricles, sulci and cisterns are normal. The birch-white differentiation is intact. Visualized paranasal sinuses and mastoid air cells are clear. Soft tissues and osseous structures are unremarkable. IMPRESSION: No intracranial abnormality identified. EDURE(s): CXRP - CHEST PORTABLE REASON: hi bp ORDER NUMBER(s): [id number], ACCESSION NUMBER(s): [id number] CHEST RADIOGRAPH Indication: hi bp Technique: Single frontal view of the chest was obtained COMPARISON: XY CHEST PORTABLE on DOS: 12/02/23 FINDINGS: Lines and Tubes: None Lungs: Clear Pleura: No effusion. No pneumothorax. Cardiomediastinal contours: Unremarkable IMPRESSION: No acute disease. No appreciable change compared to the prior chest x-ray from November 2023. X-Ray, Labs, Meds, VS Comment 49-year-old male with a history of hypertension and diabetes presenting with dizziness, blurred vision, syncope, nausea, hyperglycemia and hypertension Vitals remarkable for BP 197/119 Exam unremarkable Rhythm strip independently interpreted by me: Sinus rhythm, rate 97, no ectopy. CT head and chest x-ray unremarkable CBC normal, metabolic panel remarkable for sodium 126, chloride 93, glucose 876, normal anion gap, BNP and troponin negative, beta hydroxybutyrate normal, lactate 4.6 Patient treated with the following in the ED: Regular insulin 10 units IV, hydralazine 10 mg IV x2, 2 L 0.9 normal saline IV bolus, regular insulin 8 units IV, Ativan 1 mg IV, Robaxin 1 g p.o., morphine 4 mg IV On re-evaluation after the 1st IV insulin bolus, patient's blood glucose was 532 and blood pressure was improving. He was complaining of anxiety and bilateral leg pain/cramping. Additional IV insulin was ordered along with IV Ativan, p.o. Robaxin and IV morphine. Patient is unlikely septic. Tachycardia and elevated lactic acid level are likely due to discomfort and extreme hyperglycemia. Plan is to admit the patient for glucose and blood pressure control. Time of 1ST Reevaluation: 22:30 Reevaluation 1ST: Unchanged Time of 2ND Reevaluation: 00:00 Reevaluation 2ND: Improved Patient Education/Counseling: Diagnosis, Treatment Family Education/Counseling: No Family Present Sepsis Sepsis Reasesment Focused Exam Orders: Laboratory Tests 07/10/24 22:20: Lactic Acid Level 4.6 07/11/24 00:14: Lactic Acid Level 3.4 Recent Procedure: No On Antibiotic Therapy: No Respiratory Rate >20: No Heart Rate >90: Yes Temp<36 C (96.8 F) or >38.3 C: No SBP <90 or MAP <65 mmHG: No New Acute Mental Status Change: No Is the patient on CPAP, BIPAP,: No IV fluid given: Yes Departure 1 Departure Time of Disposition: 00:00 Impression: Primary Impression: Uncontrolled diabetes mellitus Qualified Codes: E10.65 - Type 1 diabetes mellitus with hyperglycemia Additional Impression: Hypertensive urgency Disposition: ADMITTED INPATIENT Admit to: Tele Condition: Guarded Critical Care Note Critical Care Time?: Yes (45 min-critical care time only) Critical care comment: Critical care time includes multiple bedside re-evaluations, review of lab and imaging studies, discussion of the case with the admitting provider. Patient is high-risk for metabolic and/or hemodynamic decompensation. Stability Stability form required: No Heart Score Heart Score: Heart Score Response (Comments) Value History N/A 0 EKG N/A 0 Age N/A 0 Risk Factors N/A 0 Troponin N/A 0 Total 0 I personally scribed for INDIO FLOOD MD ([email or web address]) on 07/11/24 at 00:04. Electronically submitted by Giovanni Borges ([email or web address]). INDIO FLOOD MD Jul 11, 2024 00:04
[2024-07-11] MEDS: LORazepam 2MG/ML-1ML VIAL IV ONE (00:13)
[2024-07-11] MEDS: InsuLIN REG 1unit/0.01ml Soln (100units/ml) IV ONE (00:18)
[2024-07-11] MEDS: METHOCARBAMOL 500 MG TAB PO ONE (00:22)
[2024-07-11] MEDS: hydrALAZINE HCL 20 MG/ML VL IV ONE (00:22)
[2024-07-11] MEDS: MORPHINE SULFATE 4 MG/ML SYR/VIAL IV ONE (00:59)
[2024-07-11] MEDS ORDERED: ACETAMINOPHEN 325 MG TAB PO PRN (01:30)
[2024-07-11] MEDS ORDERED: DEXTROSE (50%) 50ML SYRG IV PRN ×2 (01:30→08:30)
[2024-07-11 01:50] LABS: Potassium 4.2 mmol/L (3.5-5.1)
[2024-07-11 01:51] LABS: Anion Gap 8 (5-15); Calcium 8.7 mg/dL (8.7-10.4); Carbon Dioxide 26 mmol/L (20-31)
[2024-07-11 01:53] LABS: Chloride 97 mmol/L (98-107); Sodium 131 mmol/L (136-145)
[2024-07-11 01:56] LABS: Blood Urea Nitrogen 12 mg/dL (9-23)
[2024-07-11 02:04] LABS: Magnesium 1.8 mg/dL (1.6-2.6)
[2024-07-11 02:06] LABS: Phosphorus 3.9 mg/dL (2.4-5.1)
[2024-07-11 02:08] LABS: Glucose 555 mg/dL (74-106)
[2024-07-11 02:20] LABS: LDL Cholesterol 100 mg/dL (< 100)
[2024-07-11 02:21] LABS: Cholesterol 162 mg/dL (< 200); HDL Cholesterol 43 mg/dL (40-59)
[2024-07-11 02:25] LABS: Triglycerides 390 mg/dL (< 150)
--- NOTE | 2024-07-11 02:29 | DVHHPRES ---
History of Present Illness Resident Creating Document: JOHN STEVEN History of Present Illness This is a 49-year-old male with past medical history of hypertension, type 2 diabetes mellitus, the patient is AAO x4 but he is drowsy and sleepy (not able to provide peritoneal history), the patient presented to the ED brought by his cousin due to dizziness and syncopal event associated with blurry vision. Patient stated that all symptoms started the morning before coming to the ED. the patient was experiencing dizziness associated with blurry vision and a syncopal event recovering consciousness afterwards. Patient states that has not been able to use insulin because of running out of medications. This time, the patient is slightly confused, drowsy and sleepy not able to stablish a full conversation and a full history. Initial labs showed a normal CBC and BNP showed a serum glucose of 876 with a normal anion gap, serum sodium was 126 and corrected serum sodium was 137. Lactic acid was elevated but there was no metabolic acidosis and beta hydroxybutyric acid was normal range at 0.15. Initial chest x-ray was grossly unremarkable and CT of the head was normal as well. We will start the patient on insulin drip, IV fluids, potassium we will monitor electrolytes closely. We ordered serum osmolality and we will admit the patient for possible hyperosmolar hyperglycemic state. Cardiovascular: HTN Endocrine: Diabetes Family History: None Smoke: No ALCOHOL: none Drugs: None Lives: with Family Domestic Violence: Neg Review of Systems Constitutional: No: Fever, Chills, Sweats, Weakness, Malaise, Other Eyes: Vision change (Patient reported blurry vision); No: Pain, Conjunctivae inflammation, Eyelid inflammation, Other, Redness ENT: No: Ear pain, Ear discharge, Nose pain, Nose discharge, Nose congestion, Mouth pain, Mouth swelling, Throat pain, Throat swelling, Other Respiratory: No: Cough, Dry, Shortness of breath, SOB with excertion, Wheezing, Hemoptysis, Pleuritic Pain, Sputum, Wheezing, Other Cardiovascular: No: Chest Pain, Palpitations, Orthopnea, Paroxysmal Noc. Dyspnea, Edema, Lt Headedness, Other Gastrointestinal: No: Nausea, Vomiting, Abdominal Pain, Diarrhea, Constipation, Melena, Hematochezia, Other Genitourinary: No Dysuria, No Frequency, No Incontinence, No Hematuria, No Retention, No Other Musculoskeletal: No: other, neck pain, shoulder pain, arm pain, back pain, hand pain, leg pain, foot pain Skin: Other (There is bluish discoloration bilateral lower extremities associated with cramps); No: Rash, Lesions, Jaundice, Bruising Neurological: Confusion, Other (Dizziness); No: Weakness, Numbness, Incoordination, Change in speech, Seizures Allergies: Coded Allergies: NO KNOWN ALLERGIES (Unverified , 09/27/23) Medications Current Medications Medications Dose Ordered Sig/Jolene Route Start Time Stop Time Status Last Admin Dose Admin Acetaminophen 650 mg Q6HP PRN PO 07/11/24 01:30 Enoxaparin Sodium 40 mg DAILY SC 07/11/24 10:00 Insulin Human (Reg)/Sodium Chloride 100 ml @ 0.5 mls/hr Q24H IV 07/11/24 01:30 UNV Dextrose 50 ml UD PRN IV 07/11/24 01:30 UNV Diagnostic Test (Pha) 1 strip Q90MIN 07/11/24 01:30 UNV Exam Vital Signs Vital Signs Date Time Temp Pulse Resp B/P (MAP) Pulse Ox O2 Delivery O2 Flow Rate FiO2 07/11/24 00:59 118 18 167/106 07/11/24 00:00 92 07/10/24 22:08 Room Air* 0 21 07/10/24 22:08 98.4 98.4 General Appearance: Alert, Oriented X3, mild distress, Other (Patient is drowsy and sleepy) HEENT: Atraumatic, PERRLA, EOMI Respiratory: Clear to auscultation, Normal air movement Cardiovascular: Regular rate, Normal S1, Normal S2, No murmurs Abdominal: Normal bowel sounds, Soft, No tenderness, No hepatospenomegaly Extremities: No clubbing, No cyanosis, No edema, Normal pulses, No tenderness/swelling Skin: No rashes, No breakdown, No significant lesion Neuro: Normal gait, Normal speech, Strength at 5/5 X4 ext, Normal tone, Sensation intact, Cranial nerves 3-12 NL, Reflexes 2+ Psych/Mental Status: Mental status NL, Mood NL Labs/Xrays Labs Test 07/11/24 01:49 07/11/24 00:14 07/10/24 22:21 07/10/24 22:20 Range/Units POC Glucose 382 H 70-106 mg/dl Sodium Level 131 #L 136-145 mmol/L Potassium Level 4.2 3.5-5.1 mmol/L Chloride Level 97 L 98-107 mmol/L Carbon Dioxide Level 26 20-31 mmol/L Anion Gap 8 5-15 Blood Urea Nitrogen 12 9-23 mg/dL Creatinine 1.00 0.700-1.30 mg/dL Glomerular Filtration Rate Calc 92 >90 mL/min BUN/Creatinine Ratio 12.0 10.0-20.0 Serum Glucose 555 #*H 74-106 mg/dL Lactic Acid Level 3.4 *H 0.4-2.0 mmol/L Calcium Level 8.7 8.7-10.4 mg/dL Phosphorus Level 3.9 2.4-5.1 mg/dL Magnesium Level 1.8 1.6-2.6 mg/dL Troponin I High Sensitivity 8 </=54 ng/L Blood Gas Specimen Type Arterial Blood Gas Sample Site Right radial Blood Gas Patient Temperature 37.0 Arterial Blood Date Drawn [id number] Arterial Blood pH 7.401 7.350-7.450 Arterial Blood Partial Pressure CO2 36.4 35.0-48.0 mmHg Arterial Blood Partial Pressure O2 72.2 L 83.0-108.0 mmHg Arterial Blood HCO3 22.1 21.0-28.0 mmol/L Arterial Blood Oxygen Saturation 94.6 94.0-98.0 % Arterial Blood Base Excess -2.1 L -2.0-3.0 mmol/L Arterial Blood Oxyhemoglobin 92.9 L 94.0-98.0 % Arterial Blood Carboxyhemoglobin 1.3 0.5-1.5 % Arterial Blood Methemoglobin 0.5 0.0-1.5 % Brendan Test Yes Blood Gas Total Hemoglobin 15.70 13.5-17.5 g/dL Blood Gas Modality Room air FiO2 % 21.0 White Blood Count 8.8 4.4-10.8 10^3/uL Red Blood Count 5.32 4.5-5.90 10^6/uL Hemoglobin 15.4 13.5-17.5 g/dL Hematocrit 47.1 41.0-53.0 % Mean Corpuscular Volume 88.5 80.0-100.0 fL Mean Corpuscular Hemoglobin 28.9 28.0-32.0 pg Mean Corpuscular Hemoglobin Concent 32.7 32.0-36.0 g/dL Red Cell Distribution Width 12.8 11.8-14.3 % Platelet Count 321 140-450 10^3/uL Mean Platelet Volume 7.8 6.9-10.8 fL Neutrophils (%) (Auto) 58.1 37.0-80.0 % Lymphocytes (%) (Auto) 30.2 10.0-50.0 % Monocytes (%) (Auto) 8.1 0.0-12.0 % Eosinophils (%) (Auto) 2.8 0.0-7.0 % Basophils (%) (Auto) 0.8 0.0-2.0 % Neutrophils # (Auto) 5.1 1.6-8.6 10 ^3/uL Lymphocytes # (Auto) 2.7 0.4-5.4 10 ^3/uL Monocytes # (Auto) 0.7 0-1.3 10 ^3/uL Eosinophils # (Auto) 0.2 0-0.8 10 ^3/uL Basophils # (Auto) 0.1 0-0.2 10 ^3/uL Nucleated Red Blood Cells 0.2 % Total Bilirubin 0.6 0.2-1.0 mg/dL Aspartate Amino Transferase (AST) 9 L 13-40 U/L Alanine Aminotransferase (ALT) 28 7-40 U/L Alkaline Phosphatase 283 H 46-116 U/L B-Type Natriuretic Peptide 13.77 0-100 pg/mL Total Protein 6.4 5.7-8.2 g/dL Albumin 4.0 3.2-4.8 g/dL Beta-Hydroxybutyric Acid 0.152 < 0.4 mmol/L Test 07/10/24 21:44 Range/Units Urine Color Colorless Yellow Urine Clarity Clear Clear Urine pH 6.0 5.0-9.0 Urine Specific [place] 1.027 1.001-1.035 Urine Protein Negative Negative Urine Ketones Negative Negative Urine Blood Negative Negative /uL Urine Nitrite Negative Negative Urine Bilirubin Negative Negative Urine Urobilinogen Normal Negative mg/dL Urine Leukocyte Esterase Negative Negative /uL Urine RBC 1 0 - 3 /hpf Urine Microscopic WBC < 1 0-3 /HPF Urine Squamous Epithelial Cells Few <5 /hpf Urine Bacteria None seen None Seen /hpf Urine Glucose 4+ H Normal mg/dL Assessment/Plan Assessment/Plan Assessment/Plan Uncontrolled type II Diabetes mellitus with Possible Hyperosmolar Hyperglycemic state Severe hyperglycemia, Ruled out DKA LLOYD likely vasomotor nephropathy Lactic acidosis Primary hypertension R/O DVT Plan -Ordered serum osmolality -Initial blood glucose was 876, patient was drowsy and sleepy unable to provide full history -Start IV insulin drip -Start IV Fluids at 250cc/hr -IV potassium 20 mEq once and every 1L of fluids -Monitor potasisum and electrolytes closely -Will switch to long acting insulin and aggresive sliding scale insulin once BG drop below 250mg/dl -Ordered bilat lower ext venous doppler -Restart lisinopril 20 mg daily and amlodipine 5mg daily, monitor BP Goals of care discussed with patient and nurse at bedside for >30min, FULL CODE Plan discussed with Dr Jernigan Plan discussed with: Patient, Other My Orders Orders - JOHN STEVEN Procedure Category Date Status Time Admit ADMIT 07/11/24 Transmitted 01:21 Code Status CODE 07/11/24 Transmitted 01:21 Vital Signs PETR 07/11/24 In Process 01:21 Review Orders With PETR 07/11/24 In Process Adm. 01:21 Encourage Activity As PETR 07/11/24 In Process Tolerate 01:21 Npo (Nothing By DIET 07/11/24 Transmitted Mouth) Diet Breakfast Acetaminophen Tablet PHA 07/11/24 In Process (Tylenol Tablet) 01:30 Notify Of Changes PETR 07/11/24 In Process From Base 01:21 Advance Directive PETR 07/11/24 In Process 01:21 Basic Metabolic Panel LAB 07/12/24 Verified 04:00 Complete Blood Count LAB 07/12/24 Verified 04:00 Lipid Panel LAB 07/11/24 In Process 01:21 Patient Condition ORDERS 07/11/24 Transmitted 01:21 Allergies PETR 07/11/24 In Process 01:21 Drug Screen LAB 07/11/24 Logged 01:21 Hemoglobin A1c LAB 07/11/24 In Process 01:21 Enoxaparin Sodium PHA 07/11/24 In Process (Lovenox) 10:00 Sodium Chloride 0.9% PHA 07/11/24 In Process 01:30 Insulin Drip Protocol PETR 07/11/24 In Process Insulin Drip 100 PHA 07/11/24 In Process Unit/100ml (Myxredlin 01:30 Dextrose 50% Syringe PHA 07/11/24 In Process 01:30 Glucose Blood PHA 07/11/24 In Process (Accu-Chek Comfort 01:30 Osmolality, Serum LAB 07/11/24 In Process 01:26 Basic Metabolic Panel LAB 07/11/24 Logged 07:26 Basic Metabolic Panel LAB 07/11/24 Logged 13:26 Basic Metabolic Panel LAB 07/11/24 Logged 19:26 Neurological PETR 07/11/24 In Process Assessment 01:26 Vs/Hemodynamics PETR 07/11/24 In Process 01:26 Osmolality, Serum LAB 07/11/24 Logged 01:49 Potassium Chl PHA 07/11/24 In Process 20meq/100ml 02:00 Date of Service: Jul 11, 2024 Billing Provider: PAUL JERNIGAN MD Common Visit Codes: [id number] INP/OBS CARE (HIGH) JOHN STEVEN RESIDENT Jul 11, 2024 02:29 PAUL JERNIGAN MD Jul 11, 2024 21:46
[2024-07-11] MEDS: ACCU-CHEK COMFORT CURVE STRIP VI SCH ×2 (02:34→11:30)
[2024-07-11] MEDS: INSULIN DRIP 100 UNIT/100ML 100 ML IV SCH (02:39)
[2024-07-11] MEDS: POTASSIUM CHL 20MEQ/100ML 100 ML IV ONE ×2 (02:44→10:43)
[2024-07-11] MEDS: SODIUM CHLORIDE 0.9% 1,000 ML IV ONE (02:56)
[2024-07-11] MEDS: LISINOPRIL 20 MG TAB PO SCH (03:18)
[2024-07-11 05:05] LABS: Amphetamine Screen, Urine Neg (NEGATIVE); Cocaine Screen, Urine Neg (NEGATIVE); Opiate Scree,Urine Neg (NEGATIVE)
[2024-07-11 05:12] LABS: Barbiturate Scree,Urine Neg (NEGATIVE); Benzodiazephine Screen, Urine Neg (NEGATIVE); Cannabinoid Screen, Urine Neg (NEGATIVE); Phencyclidine Screen, Urine Neg (NEGATIVE)
[2024-07-11] MEDS ORDERED: D5W/SOD CHL 0.45%/KCL 20MEQ 1,000 ML IV SCH (05:30)
[2024-07-11] MEDS: D5W/SOD CHL 0.45%/KCL 20MEQ 1,000 ML IV SCH (06:12)
[2024-07-11 07:08] LABS: Chloride 101 mmol/L (98-107); Potassium 3.7 mmol/L (3.5-5.1)
[2024-07-11 07:09] LABS: Anion Gap 5 (5-15); Carbon Dioxide 29 mmol/L (20-31)
[2024-07-11 07:12] LABS: Calcium 8.4 mg/dL (8.7-10.4); Sodium 135 mmol/L (136-145)
[2024-07-11 07:15] LABS: BUN/Creatinine Ratio 11.3 (10.0-20.0); Blood Urea Nitrogen 9 mg/dL (9-23)
[2024-07-11 07:17] LABS: Glucose 247 mg/dL (74-106)
[2024-07-11 07:35] VITALS: PULSE 91; RESP 16; O2SAT 99
[2024-07-11 07:51] LABS: Sodium Urine 44 mmol/L (40-220)
[2024-07-11 08:00] LABS: Protein, Urine < 6.0 mg/dL (1-14)
[2024-07-11 08:02] LABS: Creatinine, Urine 18.59 mg/dL (30.0-125.0)
[2024-07-11 08:03] LABS: Urine Protein/Creatinine Ratio < 0.32
--- NOTE | 2024-07-11 09:03 | DVH ---
Bilateral lower extremity venous duplex Clinical History: edema Comparison: None Findings: Duplex Doppler evaluation of the deep venous systems of both lower extremities from the common femora l veins to the popliteal veins including color Doppler and spectral/pulsed waveform analysis was perf ormed. RIGHT SIDE: The common femoral vein demonstrates appropriate compressibility and waveform variability. There is compressibility/patency of the great saphenous vein at the proximal thigh. The femoral vein demonstrates appropriate compressibility and waveform variability. The deep femoral vein demonstrates appropriate compressibility and waveform variability. The popliteal vein demonstrates appropriate compressibility and waveform variability. There is normal compressibility at the tibioperoneal trunk. LEFT SIDE: The common femoral vein demonstrates appropriate compressibility and waveform variability. There is compressibility/patency of the great saphenous vein at the proximal thigh. The femoral vein demonstrates appropriate compressibility and waveform variability. The deep femoral vein demonstrates appropriate compressibility and waveform variability. The popliteal vein demonstrates appropriate compressibility and waveform variability. There is normal compressibility at the tibioperoneal trunk. IMPRESSION: No right or left femoropopliteal venous thrombosis. If clinical concern/symptoms persist or worsen, short-interval follow-up study is suggested. END IMPRESSION:
[2024-07-11] MEDS: INSULIN LANTUS (GLARGINE) 1 /0.01ml (100units/ml) SC SCH (09:12)
[2024-07-11] MEDS: amLODIPine BESYLATE 5 MG TAB PO SCH (10:12)
[2024-07-11] MEDS: ENOXAPARIN SOD 40 MG/0.4 ML SYRINGE SC SCH (10:13)
[2024-07-11] MEDS: InsuLIN REG 1unit/0.01ml Soln (100units/ml) SC SCH ×2 (10:36→21:19)
[2024-07-11 10:48] LABS: Alanine Aminotransferase 19 U/L (7-40); Albumin 3.5 g/dL (3.2-4.8); Anion Gap 4 (5-15); BUN/Creatinine Ratio 9.6 (10.0-20.0); Carbon Dioxide 30 mmol/L (20-31); Chloride 102 mmol/L (98-107); Magnesium 1.8 mg/dL (1.6-2.6); Sodium 136 mmol/L (136-145); Total Protein 5.8 g/dL (5.7-8.2)
[2024-07-11 10:49] LABS: Alkaline Phosphatase 137 U/L (46-116); Aspartate Aminotransferase < 8 U/L (13-40); Bilirubin, Total 0.4 mg/dL (0.2-1.0); Blood Urea Nitrogen 8 mg/dL (9-23); Calcium 8.3 mg/dL (8.7-10.4); Glucose 233 mg/dL (74-106); Phosphorus 3.1 mg/dL (2.4-5.1); Potassium 3.5 mmol/L (3.5-5.1)
--- NOTE | 2024-07-11 13:38 | DVHPNRES ---
Progress Note Date Seen: Jul 11, 2024 Resident Creating Document: SHEMAR WASHINGTON RESIDENT Medical Necessity Reason Pt with a Central, PICC or Fol: No Subjective Review of Systems This is a 49-year-old male with past medical history of hypertension, type 2 diabetes mellitus, the patient is AAO x4 but he is drowsy and sleepy (not able to provide peritoneal history), the patient presented to the ED brought by his cousin due to dizziness and syncopal event associated with blurry vision. Patient stated that all symptoms started the morning before coming to the ED. the patient was experiencing dizziness associated with blurry vision and a syncopal event recovering consciousness afterwards. Patient states that has not been able to use insulin because of running out of medications. This time, the patient is slightly confused, drowsy and sleepy not able to stablish a full conversation and a full history. Initial labs showed a normal CBC and BNP showed a serum glucose of 876 with a normal anion gap, serum sodium was 126 and corrected serum sodium was 137. Lactic acid was elevated but there was no metabolic acidosis and beta hydroxybutyric acid was normal range at 0.15. Initial chest x-ray was grossly unremarkable and CT of the head was normal as well. We will start the patient on insulin drip, IV fluids, potassium we will monitor electrolytes closely. We ordered serum osmolality and we will admit the patient for possible hyperosmolar hyperglycemic state. Patient seen in the ER. Serum osmolality decreased to 288, overlapped IV insulin with subcutaneous insulin. Telemetry. Objective vital signs Vital Sign Date Time Temp Pulse Resp B/P (MAP) Pulse Ox O2 Delivery O2 Flow Rate FiO2 07/11/24 13:01 113 20 154/95 (114) 97 07/11/24 07:35 Nasal Cannula* 2 28 07/10/24 22:08 98.4 98.4 Total Intake and Output 07/10/24 07/10/24 07/11/24 15:00 23:00 07:00 Intake Total 2725 ml Output Total 3050 ml Balance -325 ml medications Current Medications Medications Dose Ordered Sig/Jolene Route Start Time Stop Time Status Last Admin Dose Admin Acetaminophen 650 mg Q6HP PRN PO 07/11/24 01:30 Enoxaparin Sodium 40 mg DAILY SC 07/11/24 10:00 07/11/24 10:13 40 MG Lisinopril 20 mg DAILY PO 07/11/24 02:30 07/11/24 10:12 20 MG Amlodipine Besylate 5 mg DAILY PO 07/11/24 10:00 07/11/24 10:12 5 MG Insulin Glargine 30 units DAILY@1000 SC 07/11/24 08:30 07/11/24 09:12 30 UNITS Diagnostic Test (Pha) 1 strip ACHS 07/11/24 11:30 Insulin Human Regular AC SC 07/11/24 11:30 07/11/24 10:36 12 UNITS Insulin Human Regular HS SC 07/11/24 22:00 Dextrose 50 ml UD PRN IV 07/11/24 08:30 Examination Patient lying in bed, in no acute distress General: Obese, afebrile, palor, mucosae are moist Cardiovascular: Tachycardic but regular S1 and S2. No murmurs, gallops or rubs. No JVD elevation. No pedal edema Respiratory: Normal B/L air entry on room air. Clear lung sounds on auscultation Abdomen: Soft, nontender, nondistended, normoactive bowel sounds, no rebound tenderness, no organomegaly, no masses Genitourinary: Deferred MSK/skin: Mobilizes 4 limbs. Skin is dry and warm Neurological: No motor, no sensitive deficits, normal speech. Pupils are isocoric and reactive. Psych/Mental Status: A/Ox3 laboratory and microbiology Laboratory Tests 07/11/24 10:10 07/10/24 22:20 Test 07/11/24 10:10 Range/Units Serum Glucose 233 H 74-106 mg/dL Labs and/or images reviewed: Labs reviewed by me, Image(s) reviewed by me Problem List/Assessment/Plan Problem List/Assessment/Plan ALOC secondary to dehydration secondary to probable HHS Uncontrolled type II Diabetes mellitus with Possible Hyperosmolar Hyperglycemic state-A1c greater than 14 Severe hyperglycemia, Ruled out DKA LLOYD likely vasomotor nephropathy Lactic acidosis Uncontrolled hypertension Medical noncompliance R/O DVT Obesity Plan -serum osmolality below 300, discontinued IV insulin drip after 2 hour overlapping with subcutaneous insulin -Initial blood glucose was 876, patient was drowsy and sleepy unable to provide full history -Started aggressive ISS, Lantus 30 units daily -discontinued IV Fluids at 250cc/hr -Monitor potasisum and electrolytes closely -bilateral lower extremity venous Doppler ruled out DVT -lisinopril increased to 40 mg daily and amlodipine 5mg daily, monitor BP Strict I&Os Lovenox 40 mg sc daily Started soft diet, diabetic diet Patient downgraded to telemetry unit Goals of care discussed with patient and nurse at bedside for >30min, FULL CODE Plan discussed with Dr Granda Plan discussed with: Patient My Orders My Orders Orders - SHEMAR WASHINGTON Procedure Category Date Status Time Insulin Lantus PHA 07/11/24 In Process (Glargine) (Lantus) 08:30 Glucose Blood PHA 07/11/24 In Process (Accu-Chek Comfort 11:30 Insulin R (Human) PHA 07/11/24 In Process (Insulin R) 11:30 Insulin R (Human) PHA 07/11/24 In Process (Insulin R) 22:00 Dextrose 50% Syringe PHA 07/11/24 In Process 08:30 Communication Order ORDERS 07/11/24 Transmitted 08:20 Mechanical Soft Diet DIET 07/11/24 Transmitted Lunch Transfer Orders XFER 07/11/24 Transmitted 13:14 SHEMAR WASHINGTON RESIDENT Jul 11, 2024 13:38
[2024-07-11 14:05] LABS: Anion Gap 3 (5-15); Carbon Dioxide 29 mmol/L (20-31); Chloride 105 mmol/L (98-107); Potassium 4.5 mmol/L (3.5-5.1); Sodium 137 mmol/L (136-145)
[2024-07-11 14:06] LABS: Calcium 9.1 mg/dL (8.7-10.4)
[2024-07-11] MEDS: LISINOPRIL 20 MG TAB PO ONE (14:09)
[2024-07-11 14:11] LABS: BUN/Creatinine Ratio 6.3 (10.0-20.0)
[2024-07-11 14:12] LABS: Blood Urea Nitrogen 7 mg/dL (9-23); Glucose 293 mg/dL (74-106)
[2024-07-11 18:55] VITALS: BP 144/94; PULSE 90; RESP 17; TEMP 98.8; O2SAT 97
[2024-07-11 19:26] VITALS: BP 144/94; PULSE 90; RESP 17; TEMP 98.8; O2SAT 97
[2024-07-11] MEDS ORDERED: INSUINJ37 SC (19:48)
[2024-07-11 20:00] VITALS: PULSE 87
[2024-07-11 21:00] VITALS: BP 120/72; PULSE 89; RESP 17; TEMP 98.2; O2SAT 98
[2024-07-12 01:00] VITALS: BP 149/79; PULSE 83; RESP 17; TEMP 97.7; O2SAT 96
[2024-07-12 05:00] VITALS: BP 127/83; PULSE 96; RESP 17; TEMP 97.9; O2SAT 97
[2024-07-12 07:02] LABS: Basophils # (auto) 0.1 10 ^3/uL (0-0.2); Basophils % (auto) 0.8 % (0.0-2.0); Eosinophils # (auto) 0.3 10 ^3/uL (0-0.8); Eosinophils % (auto) 2.8 % (0.0-7.0); Hemoglobin 15.5 g/dL (13.5-17.5); Lymphocytes # (auto) 2.9 10 ^3/uL (0.4-5.4); Lymphocytes % (auto) 31.3 % (10.0-50.0); Mean Corpuscular Hemoglobin 29.4 pg (28.0-32.0); Mean Corpuscular Hgb Conc. 34.5 g/dL (32.0-36.0); Mean Corpuscular Volume 85.3 fL (80.0-100.0); Monocytes # (auto) 0.7 10 ^3/uL (0-1.3); Monocytes % (auto) 7.5 % (0.0-12.0); Neutrophils # (auto) 5.3 10 ^3/uL (1.6-8.6); Neutrophils % (auto) 57.6 % (37.0-80.0); Platelet Count (auto) 332 10^3/uL (140-450); Red Blood Cells 5.28 10^6/uL (4.5-5.90); Red Cell Distribution Width 12.8 % (11.8-14.3); White Blood Cell 9.2 10^3/uL (4.4-10.8)
[2024-07-12 07:11] LABS: Alanine Aminotransferase 16 U/L (7-40); Albumin 3.6 g/dL (3.2-4.8); Alkaline Phosphatase 101 U/L (46-116); Anion Gap 8 (5-15); Blood Urea Nitrogen 10 mg/dL (9-23); Calcium 8.9 mg/dL (8.7-10.4); Carbon Dioxide 26 mmol/L (20-31); Chloride 103 mmol/L (98-107); Magnesium 1.9 mg/dL (1.6-2.6); Potassium 3.8 mmol/L (3.5-5.1); Sodium 137 mmol/L (136-145)
[2024-07-12 07:12] LABS: Bilirubin, Total 0.5 mg/dL (0.2-1.0)
[2024-07-12 07:16] LABS: Aspartate Aminotransferase 9 U/L (13-40); Glucose 250 mg/dL (74-106)
[2024-07-12 08:00] VITALS: PULSE 85; PULSE 92; RESP 18; O2SAT 96
[2024-07-12 09:00] VITALS: BP 140/97; PULSE 92; RESP 18; TEMP 97.2; O2SAT 96
[2024-07-12] MEDS: POTASSIUM EFFERVESENT TAB 25 MEQ PO ONE (09:14)
[2024-07-12] MEDS: MAGNESIUM OXIDE 400 MG TAB PO ONE (09:15)
[2024-07-12] MEDS: LISINOPRIL 20 MG TAB PO SCH (09:15)
[2024-07-12] MEDS ORDERED: INSU100I52 IJ (12:25)
[2024-07-12] MEDS ORDERED: GLUCTES VI (12:25)
[2024-07-12] MEDS ORDERED: [UNRECOGNIZED DRUG - CODE] XX (12:25)
[2024-07-12] MEDS ORDERED: INSU100I74 SC (12:25)
[2024-07-12] MEDS ORDERED: ISOP70MI2 EX (12:25)
[2024-07-12] MEDS ORDERED: LANC-347 XX (12:25)
[2024-07-12] MEDS ORDERED: AMLO1TAB22 PO (12:26)
[2024-07-12] MEDS ORDERED: LISI20TA56 PO (12:26)
[2024-07-12 13:00] VITALS: BP 143/93; PULSE 96; RESP 18; TEMP 97.3; O2SAT 96
[2024-07-12 14:18] VITALS: BP 136/74; PULSE 72; RESP 18; TEMP 97.6; O2SAT 99
--- NOTE | 2024-07-12 15:29 | DVHDSRES ---
Discharge Summary Date of Admission Resident Creating Document: SHEMAR WASHINGTON RESIDENT Jul 11, 2024 at 01:21 Date of Discharge: Jul 12, 2024 Labs/Diagnostic Data: Laboratory Results Test 07/12/24 11:11 07/12/24 04:59 07/11/24 10:10 07/11/24 06:36 POC Glucose 372 mg/dl (70-106) White Blood Count 9.2 10^3/uL (4.4-10.8) Red Blood Count 5.28 10^6/uL (4.5-5.90) Hemoglobin 15.5 g/dL (13.5-17.5) Hematocrit 45.0 % (41.0-53.0) Mean Corpuscular Volume 85.3 fL (80.0-100.0) Mean Corpuscular Hemoglobin 29.4 pg (28.0-32.0) Mean Corpuscular Hemoglobin Concent 34.5 g/dL (32.0-36.0) Red Cell Distribution Width 12.8 % (11.8-14.3) Platelet Count 332 10^3/uL (140-450) Mean Platelet Volume 7.6 fL (6.9-10.8) Neutrophils (%) (Auto) 57.6 % (37.0-80.0) Lymphocytes (%) (Auto) 31.3 % (10.0-50.0) Monocytes (%) (Auto) 7.5 % (0.0-12.0) Eosinophils (%) (Auto) 2.8 % (0.0-7.0) Basophils (%) (Auto) 0.8 % (0.0-2.0) Neutrophils # (Auto) 5.3 10 ^3/uL (1.6-8.6) Lymphocytes # (Auto) 2.9 10 ^3/uL (0.4-5.4) Monocytes # (Auto) 0.7 10 ^3/uL (0-1.3) Eosinophils # (Auto) 0.3 10 ^3/uL (0-0.8) Basophils # (Auto) 0.1 10 ^3/uL (0-0.2) Nucleated Red Blood Cells 0.0 % Sodium Level 137 mmol/L (136-145) Potassium Level 3.8 mmol/L (3.5-5.1) Chloride Level 103 mmol/L (98-107) Carbon Dioxide Level 26 mmol/L (20-31) Anion Gap 8 (5-15) Blood Urea Nitrogen 10 mg/dL (9-23) Creatinine 0.83 mg/dL (0.700-1.30) Glomerular Filtration Rate Calc 107 mL/min (>90) BUN/Creatinine Ratio 12.0 (10.0-20.0) Serum Glucose 250 mg/dL (74-106) Calcium Level 8.9 mg/dL (8.7-10.4) Magnesium Level 1.9 mg/dL (1.6-2.6) Total Bilirubin 0.5 mg/dL (0.2-1.0) Aspartate Amino Transferase (AST) 9 U/L (13-40) Alanine Aminotransferase (ALT) 16 U/L (7-40) Alkaline Phosphatase 101 U/L (46-116) Total Protein 6.0 g/dL (5.7-8.2) Albumin 3.6 g/dL (3.2-4.8) Phosphorus Level 3.1 mg/dL (2.4-5.1) Creatine Kinase 39 U/L (46-171) Serum Osmolality 288 mOsm/kg (278-298) Test 07/11/24 03:00 07/11/24 00:14 07/10/24 22:21 07/10/24 22:20 Urine Creatinine 18.59 mg/dL (30.0-125.0) Urine Protein/Creatinine Ratio < 0.32 Urine Sodium 44 mmol/L (40-220) Urine Total Protein < 6.0 mg/dL (1-14) Urine Opiates Screen Neg (NEGATIVE) Urine Fentanyl Screen Neg (NEGATIVE) Urine Barbiturates Screen Neg (NEGATIVE) Urine Phencyclidine Screen Neg (NEGATIVE) Urine Amphetamines Screen Neg (NEGATIVE) Urine Benzodiazepines Screen Neg (NEGATIVE) Urine Cocaine Screen Neg (NEGATIVE) Urine Cannabinoids Screen Neg (NEGATIVE) Lactic Acid Level 3.4 mmol/L (0.4-2.0) Troponin I High Sensitivity 8 ng/L (</=54) Triglycerides Level 390 mg/dL (< 150) Cholesterol Level 162 mg/dL (< 200) LDL Cholesterol 100 mg/dL (< 100) HDL Cholesterol 43 mg/dL (40-59) Blood Gas Specimen Type Arterial Blood Gas Sample Site Right radial Blood Gas Patient Temperature 37.0 Arterial Blood Date Drawn [id number] Arterial Blood pH 7.401 (7.350-7.450) Arterial Blood Partial Pressure CO2 36.4 mmHg (35.0-48.0) Arterial Blood Partial Pressure O2 72.2 mmHg (83.0-108.0) Arterial Blood HCO3 22.1 mmol/L (21.0-28.0) Arterial Blood Oxygen Saturation 94.6 % (94.0-98.0) Arterial Blood Base Excess -2.1 mmol/L (-2.0-3.0) Arterial Blood Oxyhemoglobin 92.9 % (94.0-98.0) Arterial Blood Carboxyhemoglobin 1.3 % (0.5-1.5) Arterial Blood Methemoglobin 0.5 % (0.0-1.5) Brendan Test Yes Blood Gas Total Hemoglobin 15.70 g/dL (13.5-17.5) Blood Gas Modality Room air FiO2 % 21.0 Hemoglobin A1c > 14.0 % A1C (<5.7) B-Type Natriuretic Peptide 13.77 pg/mL (0-100) Beta-Hydroxybutyric Acid 0.152 mmol/L (< 0.4) Test 07/10/24 21:44 Urine Color Colorless (Yellow) Urine Clarity Clear (Clear) Urine pH 6.0 (5.0-9.0) Urine Specific [place] 1.027 (1.001-1.035) Urine Protein Negative (Negative) Urine Ketones Negative (Negative) Urine Blood Negative /uL (Negative) Urine Nitrite Negative (Negative) Urine Bilirubin Negative (Negative) Urine Urobilinogen Normal mg/dL (Negative) Urine Leukocyte Esterase Negative /uL (Negative) Urine RBC 1 /hpf (0 - 3) Urine Microscopic WBC < 1 /HPF (0-3) Urine Squamous Epithelial Cells Few /hpf (<5) Urine Bacteria None seen /hpf (None Seen) Urine Glucose 4+ mg/dL (Normal) Other Laboratory Tests 07/12/24 04:59 Brief Hx & Hospital Course: This is a 49-year-old male with past medical history of hypertension, type 2 diabetes mellitus, the patient is AAO x4 but he is drowsy and sleepy (not able to provide peritoneal history), the patient presented to the ED brought by his cousin due to dizziness and syncopal event associated with blurry vision. Patient stated that all symptoms started the morning before coming to the ED. the patient was experiencing dizziness associated with blurry vision and a syncopal event recovering consciousness afterwards. Patient states that has not been able to use insulin because of running out of medications. This time, the patient is slightly confused, drowsy and sleepy not able to stablish a full conversation and a full history. Initial labs showed a normal CBC and BNP showed a serum glucose of 876 with a normal anion gap, serum sodium was 126 and corrected serum sodium was 137. Lactic acid was elevated but there was no metabolic acidosis and beta hydroxybutyric acid was normal range at 0.15. Initial chest x-ray was grossly unremarkable and CT of the head was normal as well. We will start the patient on insulin drip, IV fluids, potassium we will monitor electrolytes closely. We ordered serum osmolality and we will admit the patient for possible hyperosmolar hyperglycemic state. During the hospitalization, serum osmolality was greater than 300, anion gap WNL, ketones WNL, patient was diagnosed with ALOC secondary to HHS. IV insulin drip was started along with IV half NS with potassium. Electrolytes were replenished. Patient was kept NPO. Patient's glucose started to trend down and serum osmolality decreased below 300, HSS was resolved, IV insulin was transitioned with subcutaneous insulin. Patient was started on 30 units Lantus daily and aggressive sliding scale which provided adequate glucose control. IV fluids was discontinued and patient was started on soft diet which the patient tolerated well. Electrolytes came back WNL the next day. Given the hypotension, patient was started on lisinopril which did cause increased to 40 mg daily along with amlodipine 5 mg daily and adequate blood pressure control was achieved. /-patient is hemodynamically stable, vitally stable, no acute distress. Electrolytes WNL. Therefore he has been discharged with a strong recommendations to continue to following medications: Lantus 30 units a.m. Insulin lispro 10 units before meals Lisinopril 40 mg daily Amlodipine 5 mg daily Glucometer, glucose testing strips, insulin and antihypertensive regimen was provided on discharge to the patient. Patient was strongly advised to follow up with the [facility] clinic and primary care physician within 7 days. Patient agreed with discharge planning. All questions were answered. Operations or Procedures ORDERING PHYSICIAN: INDIO FLOOD MD PROCEDURE(s): HWOCT - HEAD WITHOUT CONTRAST REASON: syncope ORDER NUMBER(s): [id number], ACCESSION NUMBER(s): [id number] CT HEAD WITHOUT CONTRAST INDICATION: syncope COMPARISON: None TECHNIQUE: CT of the head without intravenous contrast. RADIATION DOSE: CTDIvol: mGy, DLP: mGy*cm FINDINGS: There is no evidence of intracranial hemorrhage, infarct, extra-axial collection, mass effect, midline shift, herniation or hydrocephalus. The ventricles, sulci and cisterns are normal. The birhc-white differentiation is intact. Visualized paranasal sinuses and mastoid air cells are clear. Soft tissues and osseous structures are unremarkable. IMPRESSION: No intracranial abnormality identified. Condition at Discharge: Stable Final Diagnosis/Problems List ALOC secondary to dehydration secondary to probable HHS Uncontrolled type II Diabetes mellitus with Possible Hyperosmolar Hyperglycemic state-A1c greater than 14 Severe hyperglycemia, Ruled out DKA LLOYD likely vasomotor nephropathy-resolved Lactic acidosis Uncontrolled hypertension Medical noncompliance Obesity Discharge Disposition: Home Discharge Instruct/Medications Diet: Consistent carbohydrate Activity: No Restrictions, As Tolerated Follow Up/Referral: Follow up with PCP jose maria 7 days Follow up with [facility] jose maria 7 days Medications: Per APR Discharge Statement: "Patient was advised to return to the ER or call 911 if any headaches, dizziness, shortness of breath, chest pain, abdominal pain, bleeding, fevers, or worsening of medical condition. Patient was counseled about treatment plan, medications, possible side effects, patientverbalized understanding. All questions were answered to the best of my ability. This discharge took greater then 30 minutes in planning, reviewing documentation, counseling the patient, and discussing with other team members." ASSESSMENT ASSESSMENT Assessment ALOC secondary to dehydration secondary to probable HHS Uncontrolled type II Diabetes mellitus with Possible Hyperosmolar Hyperglycemic state-A1c greater than 14 Severe hyperglycemia, Ruled out DKA Date of Service: Jul 12, 2024 Billing Provider: LENORE PEARSON MD Common Visit Codes: 44541-BKB/OBS DISCH DAY >30min SHEMAR WASHINGTON RESIDENT Jul 12, 2024 15:29 LENORE PEARSON MD Jul 13, 2024 08:57
--- NOTE | 2024-07-14 11:06 | ECG ---
[facility] Test Date: 2024-07-12 Test Time: 05:45:44 Pat Name: PALMER GARCIA Department: Room: 0212T A Gender: M [employer]: ANTOINE : 1975 Requested By: SHEMAR WASHINGTON Order Number: [id number] Reading MD: Jimmie Smith Measurements Intervals [place] Rate: 82 P: 45 WI: 161 QRS: 83 QRSD: 107 T: 91 QT: 393 QTc: 459 Interpretive Statements Sinus rhythm Anteroseptal infarct, old Nonspecific T abnormalities, lateral leads Baseline wander in lead(s) V4 Electronically Signed On 07-15-2024 12:38:53 PDT by Jimmie Smith Please click the below link to view image of tracing.
== END 2024-07-12 15:00 | disposition home or self-care (01) | DRG 420 ==
LOC: ER 21:31 → OVERFLOW 07-11 01:21 → TELE-CENTR 07-11 19:12
PROVIDERS: ADMIT Student in an Organized Health Care Education/Training Program; ATTEND Emergency Medicine
DX: E11.00 Type 2 diabetes mellitus with hyperosmolarity without nonketotic hyperglycemic-hyperosmolar coma (NKHHC) (principal); N17.0 Acute kidney failure with tubular necrosis; E87.20 Acidosis, unspecified; I10 Essential (primary) hypertension; I16.0 Hypertensive urgency; Z68.32 Body mass index [BMI] 32.0-32.9, adult; E86.0 Dehydration; Z91.199 Patient's noncompliance with other medical treatment and regimen due to unspecified reason
CPT/HCPCS: 36415; 36600; 70450; 71045; 80048; 80053; 80061; 80307; 81001; 82010; 82550; 82570; 82805; 82962; 83036; 83605; 83735; 83880; 83930; 84100; 84156; 84300; 84484; 85025; 87040; 87086; 93005; 93970; 96361; 96374; 96375; G0378; J1815; J2405; J3480